=== PATIENT | male | born 1940 | race Caucasian/White ===

== ENCOUNTER 2017-09-17 09:43 | Inpatient (IN) ==
[2017-09-17] MEDS ORDERED: 0.9 % Sodium Chloride 1,000 ML IVC ONE (09:53)
[2017-09-17] MEDS ORDERED: Isovue-370 500 ML INFUS..BTL IV ONE (09:55)
[2017-09-17] MEDS ORDERED: Ondansetron 4 MG/2 ML VIAL IVP ONE (09:56)
--- NOTE | 2017-09-17 10:02 | Emergency Department Note ---
Disposition Clinical Impression: Weakness, Abdominal aneurysm, Prostate cancer, Sinus bradycardia Syncope Qualifiers: Syncope type: unspecified Qualified Code(s): R55 - Syncope and collapse Thoracic aortic aneurysm Qualifiers: Presence of rupture: without rupture Qualified Code(s): I71.2 - Thoracic aortic aneurysm, without rupture Disposition: Admitted As Inpatient Condition: Fair Time of Disposition: 12:02 Syncope HPI - General Chief Complaint: ED Syncope Stated Complaint: Syncopal Episode Time Seen by Provider: 09/17/17 09:46 Source: patient, EMS Mode of arrival: ambulatory Limitations: no limitations Nursing Notes Reviewed: Yes Vital Signs Reviewed: Yes - History of Present Illness HPI Narrative: 77-year-old male with a history of metastatic prostate cancer undergoing chemotherapy approximately 5 months ago since for evaluation of a syncopal episode. Patient recalls the episode that occurred just prior to arrival. States that he was in the kitchen and he felt lightheaded and passed out momentarily and tented to catch himself by landing on the ground on his knees. Patient denies hitting his head. States that he lost consciousness for only a matter of seconds. This was unwitnessed. Patient denied any prodromal chest pain or shortness of breath. Patient simply states that he felt lightheaded. Patient states symptom resolved. Denies any fevers or cough. 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 Patient denies any difficulty urinating. Patient does note that he has had some loose stools over the weekend and had subsequent loose stools today. Denies any abdominal pain. Denies any nausea. No vomiting. Denies being on any blood thinners. - Related Data Home Medications Medication Instructions Recorded Confirmed Aspirin Enteric Coated [Aspirin EC] 81 mg PO DAILY 01/06/15 09/17/17 Multivitamin/Iron/Folic Acid 1 each PO DAILY 01/06/15 09/17/17 [Centrum Complete Multivit Tab] Potassium Chloride 20 meq PO DAILY 01/06/15 09/17/17 Simvastatin [Zocor] 40 mg PO DAILY 01/06/15 09/17/17 Denosumab [Xgeva] 120 mg SQ QMONTH 10/05/15 09/17/17 LORazepam [Ativan] 1 mg PO DAILY PRN 09/17/17 09/17/17 Lupron Depot 1 each SQ Q3M 09/17/17 09/17/17 Omeprazole [PriLOSEC] 20 mg PO DAILY PRN 09/17/17 09/17/17 Valsartan/Hydrochlorothiazide 1 tab PO DAILY 09/17/17 09/17/17 [Diovan Hct 80-12.5 mg Tablet] Previous Rx's Medication Instructions Recorded Loperamide [Imodium] 2 cap PO AD PRN #30 capsule 03/21/17 predniSONE [Prednisone] 2.5 mg PO DAILY #30 tablet 04/28/17 Tolterodine Tartrate [Detrol] 2 mg PO BID #60 tablet 09/10/17 Allergies Allergy/AdvReac Type Severity Reaction Status Date / Time No Known Allergies Allergy Verified 09/17/17 10:16 All systems ED: reviewed and negative except as stated. Constitutional: Denies: fever Cardiovascular: Denies: chest pain Respiratory: Denies: cough, dyspnea Gastrointestinal: Reports: nausea, diarrhea. Denies: abdominal pain Past Medical History - Past Medical History Source: patient Medical history: Reports: cancer, hypertension Surgical history: Reports: herniorrhaphy Psychiatric history: Reports: no psych history - Social History Smoking Status: Current every day smoker Smokeless Tobacco Status: No Alcohol use: Reports: none Drug use: Reports: none Physical Exam - General Limitations: no limitations General appearance: alert, in no apparent distress - Head Head exam: atraumatic, normocephalic, normal inspection - Eye Eye exam: Present: normal appearance, PERRL, EOMI - ENT ENT exam: normal exam, normal oropharynx, mucous membranes moist - Neck Neck exam: Present: normal inspection - Chest Chest inspection: Present: normal inspection, symmetric chest wall rise, other ( Redness over his right upper chest wall port. Patient states that that has been present for years.) - Respiratory Respiratory exam: Present: normal lung sounds bilaterally - Cardiovascular Cardiovascular exam: Present: regular rate, normal rhythm. Absent: systolic murmur - Abdominal Exam Abdominal exam: Present: soft, Non-Tender. Absent: guarding, rebound - Extremities Exam Extremities exam: Present: normal inspection. Absent: pedal edema - Expanded Lower Extremity Exam Knee exam: Present: normal inspection, full ROM. Absent: tenderness Lower leg exam: Present: normal inspection, full ROM. Absent: tenderness Ankle exam: Present: normal inspection Neurovascular/Tendon exam: Present: normal capillary refill. Absent: pulse deficit, motor deficit, sensory deficit - Back Exam Back exam: Present: normal inspection - Neurological Exam Neurological exam: Present: alert, oriented X3, CN II-XII intact - Expanded Neurological Exam Patient oriented to: Present: person, place, time Speech: Present: fluid speech Cranial nerves: EOM function (II, III, IV, ): Normal, facial sensation (V): Normal, facial palsy (VII): Normal, spinal accessory function (XI): Normal, tongue deviation (XII): Normal Cerebellar function: finger to nose: Normal Motor strength - LUE: 5/5 Motor strength - RUE: 5/5 Motor strength - LLE: 5/5 Motor strength - RLE: 5/5 Coma Scale Eye Opening: Spontaneous Coma Scale Motor Response: Obeys Commands Coma Scale Verbal Response: Oriented Coma Scale Total: 15 - Skin Skin exam: Present: warm, dry, intact, normal color Course Course Narrative: Patient seen and examined. Patient will require extensive workup given his syncope and comorbidities with his prostate cancer. Basic screening cardiopulmonary evaluation with EKG, troponin x-ray. Patient also will get imaging with CT of the head chest abdomen pelvis. Disposition admission. - Reevaluation(s) Reevaluation #1: is concerned about weakness that the patient has been experiencing. Time: 11:10 Reevaluation #2: Patient's resting comfortably. Patient denies any needs at this time. Patient remains to be sinus bradycardia. Patient's blood pressures preserved. Patient will be admitted to the hospital service. Time: 12:10 Vital Signs Temperature 98.3 F 09/17/17 09:47 Pulse Rate 59 09/17/17 09:47 Respiratory Rate 18 09/17/17 09:47 Blood Pressure 117/77 09/17/17 09:47 O2 Sat by Pulse Oximetry 97 09/17/17 09:47 Temperature 98.3 F 09/17/17 09:47 Pulse Rate 47 09/17/17 12:54 Respiratory Rate 18 09/17/17 12:54 Blood Pressure 106/71 09/17/17 12:54 O2 Sat by Pulse Oximetry 96 09/17/17 12:54 Oxygen Delivery Oxygen Delivery Room Air Syncope - MDM Narrative Medical decision making narrative: Patient with a history of malignancy and prostate cancer with metastatic disease presents for evaluation of a syncopal episode. Patient had unwitnessed syncopal episode. Patient felt lightheaded. No prodromal symptoms. Patient's ED course included basic labs as well as chest x-ray EKG and CT of the head chest abdomen pelvis. Patient had imaging of the abdomen and pelvis due to his history of the aneurysm. Aneurysm appears to be stable. Patient is not any type of anticoagulation. Patient does have sinus bradycardia. Given the patient's history: Conditions the patient be admitted to the hospital service for further evaluation and monitoring. Patient does have redness over his right sided chest wall states it has been there chronically for years. Patient' s is concerned that the patient has been generally more weak. Patient would also benefit from formal physical therapy consult discharge planning. - Lab Data Lab results reviewed: Yes I reviewed the patient's lab results. Result diagrams: 09/17/17 10:00 09/17/17 10:00 Lab Results 09/17/17 09/17/17 09/17/17 Range/Units 09:51 10:00 10:00 WBC 6.5 (4.3-11.1) K/mcL RBC 4.06 L (4.19-5.50) M/mcL Hgb 12.7 L (12.9-16.9) g/dL Hct 37.0 L (37.5-50.1) % MCV 91.1 (83.0-100.0) fL MCH 31.3 (28.0-33.3) pg MCHC 34.3 (31.6-35.5) g/dL RDW 14.3 (11.5-14.5) % Plt Count 169 (140-400) K/mcL MPV 9.9 (9.4-12.4) fL Immature Gran % 0.3 (0-4) % Seg Neutrophils % 71.1 % Lymphocytes % 13.8 % Monocytes % 13.9 % Eosinophils % 0.6 % Basophils % 0.3 % Neutrophils # 4.6 (1.6-8.9) K/mcL Lymphocytes # 0.9 (0.6-4.6) K/mcL Monocytes # 0.9 (0.0-1.3) K/mcL Eosinophils # 0.0 (0.0-0.6) K/mcL Basophils # 0.0 (0.0-0.2) K/mcL PT 12.4 H (9.4-12.1) Seconds INR 1.1 Sodium (136-145) mEq/L Potassium (3.5-5.1) mEq/L Chloride (98-107) mEq/L Carbon Dioxide (23-29) mEq/L BUN (8-23) mg/dL Creatinine (0.70-1.30) mg/dL Est GFR ( Amer) (> 60) Est GFR (Non-Af Amer) (> 60) BUN/Creatinine Ratio (6-26) Glucose (70-105) mg/dL POC Glucose 121 H (70-99) mg/dL Calculated Osmolality (280-300) Lactic Acid (0.5-2.2) mmol/L Calcium (8.6-10.3) mg/dL Magnesium (1.6-2.6) mg/dL Total Bilirubin (0.3-1.0) mg/dL Direct Bilirubin (0.0-0.2) mg/dL Indirect Bilirubin (0.0-1.2) mg/dL AST (13-39) Units/L ALT (7-52) Units/L Alkaline Phosphatase (34-104) Units/L Troponin I (< 0.04) ng/mL B-Natriuretic Peptide (Less than 100) pg/mL Serum Total Protein (6.4-8.9) g/dL Albumin (3.5-5.7) g/dL Globulin (2.4-3.5) g/dL Albumin/Globulin Ratio (1.1-2.2) TSH (0.340-5.600) mcIU/mL 09/17/17 09/17/17 09/17/17 Range/Units 10:00 10:00 10:00 WBC (4.3-11.1) K/mcL RBC (4.19-5.50) M/mcL Hgb (12.9-16.9) g/dL Hct (37.5-50.1) % MCV (83.0-100.0) fL MCH (28.0-33.3) pg MCHC (31.6-35.5) g/dL RDW (11.5-14.5) % Plt Count (140-400) K/mcL MPV (9.4-12.4) fL Immature Gran % (0-4) % Seg Neutrophils % % Lymphocytes % % Monocytes % % Eosinophils % % Basophils % % Neutrophils # (1.6-8.9) K/mcL Lymphocytes # (0.6-4.6) K/mcL Monocytes # (0.0-1.3) K/mcL Eosinophils # (0.0-0.6) K/mcL Basophils # (0.0-0.2) K/mcL PT (9.4-12.1) Seconds INR Sodium 136 (136-145) mEq/L Potassium 3.5 (3.5-5.1) mEq/L Chloride 101 (98-107) mEq/L Carbon Dioxide 29 (23-29) mEq/L BUN 16 (8-23) mg/dL Creatinine 0.80 (0.70-1.30) mg/dL Est GFR ( Amer) > 60 (> 60) Est GFR (Non-Af Amer) > 60 (> 60) BUN/Creatinine Ratio 20 (6-26) Glucose 110 H (70-105) mg/dL POC Glucose (70-99) mg/dL Calculated Osmolality 284 (280-300) Lactic Acid 0.9 (0.5-2.2) mmol/L Calcium 8.5 L (8.6-10.3) mg/dL Magnesium 1.9 (1.6-2.6) mg/dL Total Bilirubin 0.6 (0.3-1.0) mg/dL Direct Bilirubin 0.1 (0.0-0.2) mg/dL Indirect Bilirubin 0.5 (0.0-1.2) mg/dL AST 16 (13-39) Units/L ALT 10 (7-52) Units/L Alkaline Phosphatase 57 (34-104) Units/L Troponin I < 0.03 (< 0.04) ng/mL B-Natriuretic Peptide 95 (Less than 100) pg/mL Serum Total Protein 5.7 L (6.4-8.9) g/dL Albumin 3.6 (3.5-5.7) g/dL Globulin 2.1 L (2.4-3.5) g/dL Albumin/Globulin Ratio 1.7 (1.1-2.2) TSH 0.462 (0.340-5.600) mcIU/mL - Radiology Data Radiology results reviewed: Yes I reviewed the patient's radiology results. Chest X-Ray 09/17/17 09:53 IMPRESSION: No evidence for acute cardiopulmonary process. D/ / 09/17/2017 10:29:54 Rehan Queen MD / geoff Interpreting Provider: Rehan Queen MD Head CT 09/17/17 09:54 IMPRESSION: 1. No acute intracranial abnormality. 2. Chronic small vessel ischemic disease. D/ / Bradford Nina MD / Bradford Nina MD Interpreting Provider: Bradford Nina MD Abdomen/Pelvis CTA 09/17/17 09:55 IMPRESSION: 1. Mild aneurysmal dilatation of the infrarenal aorta measuring 3.3 x 3 cm. 2. 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 3. Mild internal iliac artery aneurysm measuring up to 1.5 cm. 4. Cholelithiasis. 5. Left adrenal hyperplasia with low-attenuation nodule likely representing an adenoma. This could be further evaluated with MRI. 6. Diverticulosis without obvious inflammation. 7. Increased sclerosis involving the T11 vertebral body. This is worrisome for osseous metastasis from his known prostate cancer. RECOMMENDATIONS: Managing Abdominal Aortic Aneurysms 3.0-3.4 cm: Every 3 years. 3.5-3.9 cm: Every 1 year. 4.0-4.4 cm: Every 1 year. Recommend vascular consultation. 4.5-5.4 cm: Every 6 months. Recommend vascular consultation. Greater than or equal to 5.5 cm: Referral to vascular surgeon. *For abdominal aortas with maximum diameter of 2.6-2.9 cm meeting criteria for AAA (>50% of proximal normal segment). Reference: J Vasc Surg. 2008;50(4 Suppl):S2-49 D/ / Bradford Nina MD / Bradford Nina MD Interpreting Provider: Bradford Nina MD Chest CTA 09/17/17 09:55 IMPRESSION: 1. No evidence for acute pulmonary embolism. 2. No evidence for pneumonia. 3. Aneurysmal dilatation of ascending thoracic aorta 5.3 cm and ectatic descending thoracic aorta unchanged. D/ / Danny Lopez MD / Danny Lopez MD Interpreting Provider: Danny Lopez MD - EKG Data EKG attestation: Yes I reviewed and interpreted this EKG. EKG shows normal: sinus rhythm Rate: bradycardia Rhythm: NSR [place]/QRS: left axis deviation, RBBB, LAHB/LAFB T wave inversions noted in: v1 Ectopy: PAC Interpretation: no acute changes, unchanged when compared to prior tracing (date ), nonspecific ST-T wave changes S.B.AMigdaliaR. - S.B.A.RMigdalia Situation: Demographics Background: Presenting Complaint Assessment: Vital Signs, Course and respsone to treatment Recommendation: Barrier(s) to disposition, Recommendation based on pending studies, treatments, or consults S.B.A.RMigdalia Report Given to: Dr. Fina NewmanARonaldo Repor Time: 12:02
[2017-09-17 10:09] LABS: Basophils % 0.3 %; Eosinophils % 0.6 %; Hemoglobin 12.7 g/dL (12.9-16.9); Immature Granulocytes % 0.3 % (0-4); Lymphocytes # 0.9 K/mcL (0.6-4.6); Lymphocytes % 13.8 %; Mean Corpuscular HGB Conc 34.3 g/dL (31.6-35.5); Mean Corpuscular Hemoglobin 31.3 pg (28.0-33.3); Mean Corpuscular Volume 91.1 fL (83.0-100.0); Mean Platelet Volume 9.9 fL (9.4-12.4); Monocytes # 0.9 K/mcL (0.0-1.3); Monocytes % 13.9 %; Neutrophils # 4.6 K/mcL (1.6-8.9); Platelet Count 169 K/mcL (140-400); Red Blood Count 4.06 M/mcL (4.19-5.50); Red Cell Distribution Width 14.3 % (11.5-14.5); Segmented Neutrophils % 71.1 %
[2017-09-17 10:14] LABS: INR 1.1; Prothrombin Time 12.4 Seconds (9.4-12.1)
[2017-09-17 10:28] LABS: Troponin I < 0.03 ng/mL (< 0.04)
[2017-09-17 10:37] LABS: Alanine Aminotransferase 10 Units/L (7-52); Albumin 3.6 g/dL (3.5-5.7); Albumin/Globulin Ratio 1.7 (1.1-2.2); Alkaline Phosphatase 57 Units/L (34-104); Aspartate Amino Transferase 16 Units/L (13-39); BUN/Creatinine Ratio 20 (6-26); Bilirubin,Direct 0.1 mg/dL (0.0-0.2); Bilirubin,Indirect 0.5 mg/dL (0.0-1.2); Bilirubin,Total 0.6 mg/dL (0.3-1.0); Blood Urea Nitrogen 16 mg/dL (8-23); Calcium 8.5 mg/dL (8.6-10.3); Carbon Dioxide 29 mEq/L (23-29); Chloride 101 mEq/L (98-107); Globulin 2.1 g/dL (2.4-3.5); Glucose 110 mg/dL (70-105); Osmolality,Calculated 284 (280-300); Potassium 3.5 mEq/L (3.5-5.1); Sodium 136 mEq/L (136-145); Total Protein 5.7 g/dL (6.4-8.9); eGFR For African Americans > 60 (> 60); eGFR For Non-African Americans > 60 (> 60)
[2017-09-17 10:50] LABS: Magnesium 1.9 mg/dL (1.6-2.6)
[2017-09-17 11:27] LABS: Thyroid Stimulating Hormone 0.462 mcIU/mL (0.340-5.600)
--- NOTE | 2017-09-17 13:18 | Emergency Department Note ---
Disposition Clinical Impression: Weakness, Abdominal aneurysm, Prostate cancer, Sinus bradycardia Syncope Qualifiers: Syncope type: unspecified Qualified Code(s): R55 - Syncope and collapse Thoracic aortic aneurysm Qualifiers: Presence of rupture: without rupture Qualified Code(s): I71.2 - Thoracic aortic aneurysm, without rupture Disposition: Admitted As Inpatient Condition: Fair General Adult HPI - General Chief complaint: ED Syncope Stated complaint: Syncopal Episode Time Seen by Provider: 09/17/17 09:46 Source: patient, EMS Mode of arrival: ambulatory Limitations: no limitations - History of Present Illness Pain Scale: 0 - Related Data Home Medications Medication Instructions Recorded Confirmed Aspirin Enteric Coated [Aspirin EC] 81 mg PO DAILY 01/06/15 09/17/17 Multivitamin/Iron/Folic Acid 1 each PO DAILY 01/06/15 09/17/17 [Centrum Complete Multivit Tab] Potassium Chloride 20 meq PO DAILY 01/06/15 09/17/17 Simvastatin [Zocor] 40 mg PO DAILY 01/06/15 09/17/17 Denosumab [Xgeva] 120 mg SQ QMONTH 10/05/15 09/17/17 LORazepam [Ativan] 1 mg PO DAILY PRN 09/17/17 09/17/17 Lupron Depot 1 each SQ Q3M 09/17/17 09/17/17 Omeprazole [PriLOSEC] 20 mg PO DAILY PRN 09/17/17 09/17/17 Valsartan/Hydrochlorothiazide 1 tab PO DAILY 09/17/17 09/17/17 [Diovan Hct 80-12.5 mg Tablet] Previous Rx's Medication Instructions Recorded Loperamide [Imodium] 2 cap PO AD PRN #30 capsule 03/21/17 predniSONE [Prednisone] 2.5 mg PO DAILY #30 tablet 04/28/17 Tolterodine Tartrate [Detrol] 2 mg PO BID #60 tablet 09/10/17 Allergies Allergy/AdvReac Type Severity Reaction Status Date / Time No Known Allergies Allergy Verified 09/17/17 10:16 Constitutional: Denies: fever Cardiovascular: Denies: chest pain Respiratory: Denies: cough, dyspnea Gastrointestinal: Reports: nausea, diarrhea. Denies: abdominal pain Past Medical History - Past Medical History Medical history: Reports: cancer, hypertension Surgical history: Reports: herniorrhaphy Psychiatric history: Reports: no psych history - Social History Smoking Status: Current every day smoker Smokeless Tobacco Status: No Alcohol use: Reports: none Drug use: Reports: none Physical Exam - General Limitations: no limitations General appearance: alert, in no apparent distress Course Vital Signs Temperature 98.3 F 09/17/17 09:47 Pulse Rate 59 09/17/17 09:47 Respiratory Rate 18 09/17/17 09:47 Blood Pressure 117/77 09/17/17 09:47 O2 Sat by Pulse Oximetry 97 09/17/17 09:47 Temperature 98.4 F 09/17/17 15:30 Pulse Rate 51 09/17/17 15:30 Respiratory Rate 16 09/17/17 15:30 Blood Pressure 96/54 09/17/17 15:30 O2 Sat by Pulse Oximetry 96 09/17/17 15:30 Oxygen Delivery Oxygen Delivery Room Air Medical Decision Making - Lab Data Result diagrams: 09/17/17 10:00 09/17/17 10:00 Lab Results 09/17/17 09/17/17 09/17/17 Range/Units 09:51 10:00 10:00 WBC 6.5 (4.3-11.1) K/mcL RBC 4.06 L (4.19-5.50) M/mcL Hgb 12.7 L (12.9-16.9) g/dL Hct 37.0 L (37.5-50.1) % MCV 91.1 (83.0-100.0) fL MCH 31.3 (28.0-33.3) pg MCHC 34.3 (31.6-35.5) g/dL RDW 14.3 (11.5-14.5) % Plt Count 169 (140-400) K/mcL MPV 9.9 (9.4-12.4) fL Immature Gran % 0.3 (0-4) % Seg Neutrophils % 71.1 % Lymphocytes % 13.8 % Monocytes % 13.9 % Eosinophils % 0.6 % Basophils % 0.3 % Neutrophils # 4.6 (1.6-8.9) K/mcL Lymphocytes # 0.9 (0.6-4.6) K/mcL Monocytes # 0.9 (0.0-1.3) K/mcL Eosinophils # 0.0 (0.0-0.6) K/mcL Basophils # 0.0 (0.0-0.2) K/mcL PT 12.4 H (9.4-12.1) Seconds INR 1.1 Sodium (136-145) mEq/L Potassium (3.5-5.1) mEq/L Chloride (98-107) mEq/L Carbon Dioxide (23-29) mEq/L BUN (8-23) mg/dL Creatinine (0.70-1.30) mg/dL Est GFR ( Amer) (> 60) Est GFR (Non-Af Amer) (> 60) BUN/Creatinine Ratio (6-26) Glucose (70-105) mg/dL POC Glucose 121 H (70-99) mg/dL Calculated Osmolality (280-300) Lactic Acid (0.5-2.2) mmol/L Calcium (8.6-10.3) mg/dL Magnesium (1.6-2.6) mg/dL Total Bilirubin (0.3-1.0) mg/dL Direct Bilirubin (0.0-0.2) mg/dL Indirect Bilirubin (0.0-1.2) mg/dL AST (13-39) Units/L ALT (7-52) Units/L Alkaline Phosphatase (34-104) Units/L Troponin I (< 0.04) ng/mL B-Natriuretic Peptide (Less than 100) pg/mL Serum Total Protein (6.4-8.9) g/dL Albumin (3.5-5.7) g/dL Globulin (2.4-3.5) g/dL Albumin/Globulin Ratio (1.1-2.2) TSH (0.340-5.600) mcIU/mL 09/17/17 09/17/17 09/17/17 Range/Units 10:00 10:00 10:00 WBC (4.3-11.1) K/mcL RBC (4.19-5.50) M/mcL Hgb (12.9-16.9) g/dL Hct (37.5-50.1) % MCV (83.0-100.0) fL MCH (28.0-33.3) pg MCHC (31.6-35.5) g/dL RDW (11.5-14.5) % Plt Count (140-400) K/mcL MPV (9.4-12.4) fL Immature Gran % (0-4) % Seg Neutrophils % % Lymphocytes % % Monocytes % % Eosinophils % % Basophils % % Neutrophils # (1.6-8.9) K/mcL Lymphocytes # (0.6-4.6) K/mcL Monocytes # (0.0-1.3) K/mcL Eosinophils # (0.0-0.6) K/mcL Basophils # (0.0-0.2) K/mcL PT (9.4-12.1) Seconds INR Sodium 136 (136-145) mEq/L Potassium 3.5 (3.5-5.1) mEq/L Chloride 101 (98-107) mEq/L Carbon Dioxide 29 (23-29) mEq/L BUN 16 (8-23) mg/dL Creatinine 0.80 (0.70-1.30) mg/dL Est GFR ( Amer) > 60 (> 60) Est GFR (Non-Af Amer) > 60 (> 60) BUN/Creatinine Ratio 20 (6-26) Glucose 110 H (70-105) mg/dL POC Glucose (70-99) mg/dL Calculated Osmolality 284 (280-300) Lactic Acid 0.9 (0.5-2.2) mmol/L Calcium 8.5 L (8.6-10.3) mg/dL Magnesium 1.9 (1.6-2.6) mg/dL Total Bilirubin 0.6 (0.3-1.0) mg/dL Direct Bilirubin 0.1 (0.0-0.2) mg/dL Indirect Bilirubin 0.5 (0.0-1.2) mg/dL AST 16 (13-39) Units/L ALT 10 (7-52) Units/L Alkaline Phosphatase 57 (34-104) Units/L Troponin I < 0.03 (< 0.04) ng/mL B-Natriuretic Peptide 95 (Less than 100) pg/mL Serum Total Protein 5.7 L (6.4-8.9) g/dL Albumin 3.6 (3.5-5.7) g/dL Globulin 2.1 L (2.4-3.5) g/dL Albumin/Globulin Ratio 1.7 (1.1-2.2) TSH 0.462 (0.340-5.600) mcIU/mL Attestation Statement - Attestation Attestation: I examined this patient and my medical decision-making was reviewed with the Resident Physician, Dr. Castano. I agree with the documented findings, disposition and treatment plan as described except to the extent set forth below. Patient is a 77-year-old white male with history of metastatic prostate cancer who presents to the emergency department after a syncopal episode. Patient was just recently seen on Friday by his oncologist where they discussed possibly initiating radiation therapy. They had withheld his chemotherapy treatment temporarily because of diarrheal illness he been having over the weekend causing some generalized weakness. Patient states his diarrhea has continued to bother him is having loose watery bowel movements and the is concerned about his overall profound generalized weakness that he has been having that has gradually worsening over the past week. Patient states this morning he was standing in the kitchen and became lightheaded and subsequently fell towards his right side he reports onto his knees and thinks he may have lost consciousness for a matter of seconds. Patient remembers everything and the course of the fall denies hitting his head and denies any neck or back pain. Patient has no complaints related to the fall. Patient denies any prodromal symptoms prior to the fall with the exception of lightheadedness. Patient is asymptomatic here resting comfortably mildly bradycardic but blood pressure stable. I agree with patient's physical exam findings as documented. Patient's EKG showed a sinus bradycardia without acute ischemia. Patient on the monitor and pulse ox at this time. IV fluids were initiated labs were drawn and sent and based on patient's history of both the thoracic and abdominal aortic aneurysm he was sent for CTA that chest and abdomen and pelvis. As well as CT of the brain. Patient's labs and imaging is unremarkable overall with no findings that made contributed to his incident today. Patient has had a persistent bradycardia that may be contributing to this weakness. Patient will be admitted for further evaluation and management case was discussed with hospitalist Dr. Sweet.
--- NOTE | 2017-09-17 14:10 | Internal Med History&Physical ---
<Jemima Rodriguez - Last Filed: 09/17/17 13:56> Date of Encounter: 09/17/17 Time of Encounter: 13:57 Internal Medicine - H&P: HPI Admitted From: Home Plans for Post Hospital Care: Home History of present illness: Mr. Garnica is a 77 year old male who had a syncopal episode while at home standing in his kitchen. The patient indicated that he tried to cath his balance then fell into te refrigerator. The patient indicated that his face fell into the refrigerator. He did indicate that he had bouts of diarrhea, even up to today, but denies abdominal pain. He denied any fevers. He did report occasionally coughing up white phlegm. He denied any history of diarrhea or stool infections. He was diagnosed with prostate cancer and has a mediport on the left chest. The mediport was placed around 15 months ago, per the and she indicated that the port site and tubing line, sub-dermal, has been reddened ever since. The patient has apparently had cultures of the skin, but the indicate he has never had any cultures from the line. His last chemo treatment was in April 2017. The patient heart-rate in the mid 40's per tele, indicated it is typically around 45-50. His bp is also marginally hypotensive and the patient indicate this was his norm. A UA, stool cultures, c-diff, and blood culture will be obtained to assess status of any infection. CT was negative for PE. The patient has 3 aneurysms, with the largest in the aorta measuring 3.3x3cm per abd CT scan. Ct of the head was negative for hemorrhage. Past Med Surg Social Fam HX - Past Medical History Medical history: cancer, hypertension Psychiatric history: no psych history - Past Surgical History Surgical History: herniorrhaphy - Social History Smoking Status: Current every day smoker Smokeless Tobacco Status: No Alcohol use: none Drug use: none Internal Medicine - H&P: Meds Aspirin Enteric Coated [Aspirin EC] 81 mg PO DAILY 01/06/15 [History] Multivitamin/Iron/Folic Acid [Centrum Complete Multivit Tab] 1 each PO DAILY [History] Potassium Chloride 20 meq PO DAILY 01/06/15 [History] Simvastatin [Zocor] 40 mg PO DAILY 01/06/15 [History] Denosumab [Xgeva] 120 mg SQ QMONTH 10/05/15 [History] Loperamide [Imodium] 2 cap PO AD PRN #30 capsule 03/21/17 [Rx] predniSONE [Prednisone] 2.5 mg PO DAILY #30 tablet 04/28/17 [Rx] Tolterodine Tartrate [Detrol] 2 mg PO BID #60 tablet 09/10/17 [Rx] LORazepam [Ativan] 1 mg PO DAILY PRN 09/17/17 [History] Lupron Depot 1 each SQ Q3M 09/17/17 [History] Omeprazole [PriLOSEC] 20 mg PO DAILY PRN 09/17/17 [History] Valsartan/Hydrochlorothiazide [Diovan Hct 80-12.5 mg Tablet] 1 tab PO DAILY 07/06 [History] 3 Allergy/AdvReac Type Severity Reaction Status Date / Time No Known Allergies Allergy Verified 09/17/17 10:16 All Systems PM: A 10-system review of systems was performed and is negative for pertinent findings except as documented above in the HPI. - Constitutional Constitutional: falls, weakness, no fever(s) - EENT Nose, mouth and throat: nasal congestion - Cardiovascular Cardiovascular ROS IM: lightheadedness, syncope, no chest pain - Respiratory Respiratory: cough, excessive phlegm production - Gastrointestinal Gastrointestinal: diarrhea, no abdominal pain - Genitourinary Genitourinary ROS male: other (Prostate Cancer) - Musculoskeletal Musculoskeletal ROS IM: muscle weakness - Neurological Neurological ROS: weakness - Allergic/Immunologic Allergic/Immunologic: wheezing ( indicated that when he has alot of phlegm he has audible wheezing) - Constitutional Vitals: Temp Pulse Resp BP Pulse Ox 98.3 F 47 18 110/65 96 09/17/17 09:47 09/17/17 12:54 09/17/17 13:30 09/17/17 13:30 09/17/17 12:54 General appearance: Present: A&O X 3, pleasant, answers questions appropriately - Head Head exam: Present: atraumatic, normocephalic (Small erythematous area to left cheek, with associated mild bruising under eye from fall) - Eye Eye exam: Present: PERRL, conjuntiva pink, sclera anicteric Pupils: Present: PERRL - Neck Neck exam general surgery: Present: supple, trachea midline. Absent: lymphadenopathy - Respiratory Respiratory exam: Present: CTAB. Absent: accessory muscle use, rales, rhonchi, wheezes - Cardiovascular Cardiovascular exam: Present: RRR, +S1, +S2. Absent: diastolic murmur, gallop, rubs, systolic murmur - GI/Abdominal GI/Abdominal exam: Present: normal bowel sounds, soft, no peritoneal signs. Absent: distended, guarding, tenderness - Extremities Exam Extremities exam: Present: warm, radial pulses palpable and symmetrical. Absent : calf tenderness, cyanotic, pedal edema - Neurological Exam Neurological exam: Present: alert, CN II-XII intact, oriented X3, no focal deficits. Absent: pronater drift, facial droop, speech deficit - Skin Skin exam: Present: dry, erythema, intact Internal Med - H&P Results - Labs CBC & Chem 7: 09/17/17 10:00 09/17/17 10:00 - Assessment and plan (1) Syncope Current Visit: Yes Status: Acute Assessment and plan: Will monitor ortho static bps daily, give IVF, ct of head was negative for hemorrhage. Pt alert and oriented x 3 denies symptoms at this time. (2) Abdominal aneurysm Current Visit: Yes Status: Acute Assessment and plan: New result to patient today. Will monitor outpatient. (3) Sinus bradycardia Current Visit: Yes Status: Acute Assessment and plan: Patient indicated that he normally runs in the mid to high 40's at home. Will hold antihypertensive meds for now, as this may be the possible cause. Will continue IVF's. (4) Diarrhea Current Visit: No Status: Acute Assessment and plan: The patient reported intermittent diarrheal stools for the past few days could be caused for a infectious process or viral infection. Will get stool cultures and c-diff specimen. The patient will be in contact isolation until cleared. IV fluids. Qualifiers: Diarrhea type: unspecified type Qualified Code(s): R19.7 - Diarrhea, unspecified - Time Spent With Patient Total time spent is greater than 50% in coordination of care (as documented) at patient's floor/unit and/or counseling patient: Greater than 35 minutes <Leonidas Carlisle - Last Filed: 09/17/17 14:59> Date of Encounter: 09/17/17 Internal Medicine - H&P: HPI History of present illness: Mr. Garnica is a 77 year old male All Systems PM: A 10-system review of systems was performed and is negative for pertinent findings except as documented above in the HPI. - Constitutional Vitals: Temp Pulse Resp BP Pulse Ox 98.3 F 47 18 110/65 96 09/17/17 09:47 09/17/17 12:54 09/17/17 13:30 09/17/17 13:30 09/17/17 12:54 Internal Med - H&P Results - Labs CBC & Chem 7: 09/17/17 10:00 09/17/17 10:00 - Attending Attestation I have personally performed a face to face evaluation on this patient. I have reviewed and agree with the care plan. History and Exam by me shows: Mr. 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 He felt unwell last Friday when he had an episode where he was noted to be as white as a sheet with weakness along the whole body that is nonfocal. On that day he had diarrhea all day up to 6 times with watery brown stool output. He subsequently had diarrhea on Friday as well. He experience a break from diarrhea until today where he had 3 episodes and had taken Imodium with some improvement. Today he had persistent dizziness associated with a syncopal episode at a short lived. He landed on the ground on his knees and suspected that he lost consciousness for a matter of seconds. On review he has a right chest port with an erythematous track which she reports as chronic since placement 13 months ago. He reports that the port has been investigated with no evidence of infection. He denies any fevers or chills at current EKG personally reviewed with rate of 58, right bundle branch block that is unchanged since 2015 ROS 14 point review of systems reviewed as best as possible given presentation. Pertinent positive or negative as per HPI or otherwise reviewed as negative General - AAO x 3 Psych - Appropriate affect/speech. No agitation Eyes - ZAIRA. Eye lids intact. No scleral icterus Neuro - No gross peripheral or central neuro deficits on inspection Heart - Sinus. RRR. S1 and S2 present. No added HS/murmurs appreciated. No elevated JVD appreciated. Lung - Adequate air entry b/l, No crackles/wheezes appreciated GI - Soft, non-tender. No hepatosplenomegaly/ascites. BS+ - No CVA/suprapubic tenderness or palpable bladder distension Skin - right chest port with erythema under the track CT/CT angio chest IMPRESSION: 1. No evidence for acute pulmonary embolism. 2. No evidence for pneumonia. 3. Aneurysmal dilatation of ascending thoracic aorta 5.3 cm and ectatic descending thoracic aorta unchanged. CT/CT angio abdomen pelvis IMPRESSION: 1. Mild aneurysmal dilatation of the infrarenal aorta measuring 3.3 x 3 cm. 2. 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 3. Mild internal iliac artery aneurysm measuring up to 1.5 cm. 4. Cholelithiasis. 5. Left adrenal hyperplasia with low-attenuation nodule likely representing an adenoma. This could be further evaluated with MRI. 6. Diverticulosis without obvious inflammation. 7. Increased sclerosis involving the T11 vertebral body. This is worrisome for osseous metastasis from his known prostate cancer. - Time Spent With Patient Total time spent is greater than 50% in coordination of care (as documented) at patient's floor/unit and/or counseling patient:
[2017-09-17] MEDS: 0.9 % Sodium Chloride 1,000 ML IVC SCH (14:31)
[2017-09-17 16:00] LABS: Bilirubin,Urine Negative (Negative); Blood,Urine Trace (Negative); Clarity,Urine Clear (Clear); Color,Urine Yellow (Yellow); Glucose,Urine (UA) Normal (Normal); Ketones,Urine Negative (Negative); Leukocyte Esterase,Urine Negative (Negative); Nitrite,Urine Negative (Negative); Protein,Urine Negative (Neg-Trace); Specific Gravity,Urine 1.027 (1.010-1.025); Urobilinogen,Urine Normal (Normal)
[2017-09-17 16:02] LABS: Bacteria,Urine None Seen per hpf (None-Few); Hyaline Casts,Urine None Seen per lpf (None-Few); RBC,Urine 0-3 per hpf (0-3); Squamous Epithelial Cell,Urine Few per lpf (None-Few); WBC,Urine 0-3 per hpf (0-3)
--- NOTE | 2017-09-17 22:29 | Electrocardiograph Report ---
[place] [facility] Test Date: 2017-09-17 Pat Name: Isael Garnica Department: 104 Room: [facility] Gender: M [employer]: JOSÉ ANTONIO : 1940 Requested By: Luis Castano Order Number: [id number] Reading MD: Carroll Villarreal Measurements Intervals [place] Rate: 58 P: 78 AL: 144 QRS: -62 QRSD: 142 T: 31 QT: 473 QTc: 470 Interpretive Statements SINUS BRADYCARDIA WITH OCCASIONAL SUPRAVENTRICULAR PREMATURE COMPLEXES RIGHT BUNDLE BRANCH BLOCK LEFT ANTERIOR FASCICULAR BLOCK Electronically Signed On 09-17-2017 22:27:07 EDT by Carroll Villarreal
[2017-09-18] MEDS: *HR* LORazepam 1 MG TABLET PO PRN ×3 (02:21→18:05)
[2017-09-18] MEDS: 0.9 % Sodium Chloride 1,000 ML IVC SCH ×2 (02:21→18:06)
[2017-09-18] MEDS: *HR* Enoxaparin 40 MG/0.4 ML SYRINGE SQ SCH (05:20)
[2017-09-18 05:38] LABS: Basophils % 0.4 %; Eosinophils # 0.1 K/mcL (0.0-0.6); Eosinophils % 1.8 %; Hematocrit 31.8 % (37.5-50.1); Immature Granulocytes % 0.4 % (0-4); Lymphocytes # 1.3 K/mcL (0.6-4.6); Mean Corpuscular HGB Conc 34.3 g/dL (31.6-35.5); Mean Corpuscular Hemoglobin 31.1 pg (28.0-33.3); Mean Corpuscular Volume 90.9 fL (83.0-100.0); Monocytes % 15.1 %; Neutrophils # 3.3 K/mcL (1.6-8.9); Platelet Count 162 K/mcL (140-400); Red Cell Distribution Width 14.3 % (11.5-14.5); Segmented Neutrophils % 59.3 %
[2017-09-18 05:49] LABS: Hemoglobin 10.9 g/dL (12.9-16.9); Monocytes # 0.9 K/mcL (0.0-1.3)
[2017-09-18 06:01] LABS: BUN/Creatinine Ratio 16 (6-26); Blood Urea Nitrogen 12 mg/dL (8-23); Calcium 7.4 mg/dL (8.6-10.3); Carbon Dioxide 27 mEq/L (23-29); Chloride 105 mEq/L (98-107); Glucose 90 mg/dL (70-105); Osmolality,Calculated 283 (280-300); Potassium 3.5 mEq/L (3.5-5.1); Sodium 137 mEq/L (136-145); eGFR For African Americans > 60 (> 60); eGFR For Non-African Americans > 60 (> 60)
[2017-09-18 06:08] LABS: Platelet Estimate Normal (Normal); Reactive Lymphocytes Present (Not Present)
[2017-09-18] MEDS: predniSONE 5 MG TABLET PO SCH (08:49)
[2017-09-18] MEDS: Aspirin Enteric Coated 81 MG Tablet PO SCH (08:49)
[2017-09-18] MEDS: Multivit/Ca/Min/Fe/FA 1 TAB TABLET PO SCH (08:50)
--- NOTE | 2017-09-18 14:58 | Internal Med Progress Note ---
Date of Encounter: 09/18/17 Time of Encounter: 14:53 - Assessment and plan (1) Dehydration Current Visit: Yes Status: Acute Assessment and plan: Syncopal episodes likely secondary to dehydration related to acute viral gastroenteritis Continue IV fluids Send GI panel Fall precautions (2) Thoracic aortic aneurysm Current Visit: Yes Status: Acute Assessment and plan: Has not progressed CT scan of the chest showed:1. No evidence for acute pulmonary embolism. 2. No evidence for pneumonia. 3. Aneurysmal dilatation of ascending thoracic aorta 5.3 cm and ectatic descending thoracic aorta unchanged. First evidenced on the CT scan performed on January 2015 measuring 5.7 cm Quit smoking and follow-up as an outpatient Qualifiers: Presence of rupture: without rupture Qualified Code(s): I71.2 - Thoracic aortic aneurysm, without rupture (3) Viral gastroenteritis Current Visit: Yes Status: Acute (4) Abdominal aneurysm Current Visit: Yes Status: Acute Assessment and plan: CT scan of the abdomen showed:1. No evidence of intrathoracic or abdominopelvic metastatic disease 2. Stable sclerotic lesion of T12. No findings of new skeletal metastatic disease 3. Stable 5.3 cm aneurysm of the ascending thoracic aorta 4. Stable 3.1 cm aneurysm of the abdominal aorta with bilateral iliac ectasia 5. Left adrenal adenoma 6. Stable complicated right renal cyst 7. Cholelithiasis 8. Colonic diverticulosis 9. Status post prostatectomy Infrarenal aortic dilatation first noticed on November 2015, 3.2 cm as well as bilateral common iliac arteries 2.4 cm on the right and 2 cm on the left. (5) Sinus bradycardia Current Visit: Yes Status: Acute Assessment and plan: Asymptomatic bradycardia Continue telemetry, consider cardiology consult if becomes symptomatic (6) Syncope Current Visit: Yes Status: Acute Qualifiers: Syncope type: unspecified Qualified Code(s): R55 - Syncope and collapse (7) Prostate cancer Current Visit: Yes Status: Chronic Assessment and plan: Follow-up with oncology as outpatient Continue Lupron On chronic prednisone 2.5 mg daily (8) Diarrhea Current Visit: No Status: Acute Qualifiers: Diarrhea type: infectious Qualified Code(s): A09 - Infectious gastroenteritis and colitis, unspecified - Time Spent With Patient Total time spent is greater than 50% in coordination of care (as documented) at patient's floor/unit and/or counseling patient: - Subjective Interval history: Denies any chest pain or shortness of breath, no dizziness, no abdominal pain or dysuria. Had watery diarrhea in the past few days and felt dizzy prior to falling - Constitutional Vitals: Temp Pulse Resp BP Pulse Ox 99.8 F H 49 18 99/59 95 09/18/17 11:34 09/18/17 11:34 09/18/17 11:34 09/18/17 11:34 09/18/17 11:34 General appearance: Present: A&O X 3, pleasant, answers questions appropriately - Head Head exam: Present: atraumatic, normocephalic - Eye Eye exam: Present: PERRL, conjuntiva pink, sclera anicteric Pupils: Present: PERRL - Neck Neck exam general surgery: Present: supple, trachea midline. Absent: lymphadenopathy - Respiratory Respiratory exam: Present: CTAB. Absent: accessory muscle use, rales, rhonchi, wheezes - Cardiovascular Cardiovascular exam: Present: RRR, +S1, +S2. Absent: diastolic murmur, gallop, rubs, systolic murmur - GI/Abdominal GI/Abdominal exam: Present: normal bowel sounds, soft, no peritoneal signs. Absent: distended, tenderness - Extremities Exam Extremities exam: Present: warm, radial pulses palpable and symmetrical. Absent : calf tenderness, cyanotic, pedal edema - Neurological Exam Neurological exam: Present: CN II-XII intact, oriented X3, no focal deficits. Absent: pronater drift, facial droop, speech deficit - Skin Skin exam: Present: dry, intact Internal Medicine: Result - Labs CBC & Chem 7: 09/18/17 05:25 09/18/17 05:25 Labs: Short CBC 09/18/17 Range/Units 05:25 WBC 5.6 (4.3-11.1) K/mcL Hgb 10.9 L D (12.9-16.9) g/dL Hct 31.8 L (37.5-50.1) % Plt Count 162 (140-400) K/mcL Neutrophils # 3.3 (1.6-8.9) K/mcL BMP 09/18/17 05:25 Sodium 137 Potassium 3.5 Chloride 105 Carbon Dioxide 27 BUN 12 Creatinine 0.73 Glucose 90 Calcium 7.4 L Urine 09/17/17 Range/Units 15:45 Urine Color Yellow (Yellow) Urine Clarity Clear (Clear) Urine pH 6.0 (5.0-8.0) pH Units Ur Specific [place] 1.027 H (1.010-1.025) Urine Protein Negative (Neg-Trace) mg/dL Urine Glucose (UA) Normal (Normal) mg/dL - ABG Interpretation ABG results: PT/INR, D-dimer PT 12.4 Seconds (9.4-12.1) H 09/17/17 10:00 Consult Discharge Plan - Plan Referrals: Maikel Godwin Jr, MD [Primary Care Provider] -
[2017-09-19] MEDS: *HR* LORazepam 1 MG TABLET PO PRN ×2 (00:13→09:13)
[2017-09-19] MEDS: 0.9 % Sodium Chloride 1,000 ML IVC SCH (06:15)
[2017-09-19] MEDS: *HR* Enoxaparin 40 MG/0.4 ML SYRINGE SQ SCH (06:16)
[2017-09-19 07:01] LABS: Basophils % 0.4 %; Eosinophils # 0.2 K/mcL (0.0-0.6); Hemoglobin 10.7 g/dL (12.9-16.9); Immature Granulocytes % 0.2 % (0-4); Lymphocytes # 1.3 K/mcL (0.6-4.6); Lymphocytes % 22.6 %; Mean Corpuscular HGB Conc 33.4 g/dL (31.6-35.5); Mean Corpuscular Hemoglobin 30.7 pg (28.0-33.3); Mean Corpuscular Volume 91.7 fL (83.0-100.0); Mean Platelet Volume 10.4 fL (9.4-12.4); Monocytes # 0.9 K/mcL (0.0-1.3); Monocytes % 15.3 %; Neutrophils # 3.3 K/mcL (1.6-8.9); Platelet Count 173 K/mcL (140-400); Red Blood Count 3.49 M/mcL (4.19-5.50); Red Cell Distribution Width 14.3 % (11.5-14.5); Segmented Neutrophils % 58.5 %
[2017-09-19 07:50] LABS: BUN/Creatinine Ratio 20 (6-26); Blood Urea Nitrogen 12 mg/dL (8-23); Calcium 7.3 mg/dL (8.6-10.3); Carbon Dioxide 27 mEq/L (23-29); Chloride 109 mEq/L (98-107); Glucose 82 mg/dL (70-105); Osmolality,Calculated 289 (280-300); Potassium 3.5 mEq/L (3.5-5.1); Sodium 140 mEq/L (136-145); eGFR For African Americans > 60 (> 60); eGFR For Non-African Americans > 60 (> 60)
[2017-09-19 08:18] VITALS: BP 106/54
--- NOTE | 2017-09-19 09:09 | Discharge Summary ---
- NOTES TO OUTPATIENT PROVIDER Notes to Outpatient Provider: Follow-up with primary care physician within the next 7 days. May follow-up with cardiology within the next 2-3 weeks. Hold valsartan and hydrochlorothiazide if blood pressure is below 120 or if dehydrated. Quit smoking. Needs imaging once yearly to assess aortic aneurysms which are stable at the moment Orders not resulted at time of discharge: Pending orders 09/18/17 14:53 Fecal Hemoccult [Occult Blood,Stool] [BF] Routine Date of Encounter: 09/19/17 Time of Encounter: 09:07 - Discharge Diagnosis (1) Dehydration Priority: Primary Status: Acute Assessment and Plan: Syncopal episodes likely secondary to dehydration related to acute viral gastroenteritis (2) Thoracic aortic aneurysm Priority: Secondary Status: Acute Assessment and Plan: Has not progressed CT scan of the chest showed:1. No evidence for acute pulmonary embolism. 2. No evidence for pneumonia. 3. Aneurysmal dilatation of ascending thoracic aorta 5.3 cm and ectatic descending thoracic aorta unchanged. First evidenced on the CT scan performed on January 2015 measuring 5.7 cm Quit smoking and follow-up as an outpatient Qualifiers: Presence of rupture: without rupture Qualified Code(s): I71.2 - Thoracic aortic aneurysm, without rupture (3) Viral gastroenteritis Priority: Primary Status: Acute (4) Abdominal aneurysm Priority: Secondary Status: Acute Assessment and Plan: CT scan of the abdomen showed:1. No evidence of intrathoracic or abdominopelvic metastatic disease 2. Stable sclerotic lesion of T12. No findings of new skeletal metastatic disease 3. Stable 5.3 cm aneurysm of the ascending thoracic aorta 4. Stable 3.1 cm aneurysm of the abdominal aorta with bilateral iliac ectasia 5. Left adrenal adenoma 6. Stable complicated right renal cyst 7. Cholelithiasis 8. Colonic diverticulosis 9. Status post prostatectomy Infrarenal aortic dilatation first noticed on November 2015, 3.2 cm as well as bilateral common iliac arteries 2.4 cm on the right and 2 cm on the left. (5) Sinus bradycardia Priority: Secondary Status: Acute Assessment and Plan: Asymptomatic bradycardia Was offered the option to consult cardiology but says he has had it for 10 years May follow up with cardiology as outpatient (6) Syncope Priority: Primary Status: Acute Qualifiers: Syncope type: unspecified Qualified Code(s): R55 - Syncope and collapse (7) Prostate cancer Priority: Secondary Status: Chronic (8) Diarrhea Priority: Primary Status: Acute Qualifiers: Diarrhea type: infectious Qualified Code(s): A09 - Infectious gastroenteritis and colitis, unspecified (9) Iron deficiency anemia Priority: Secondary Status: Acute Qualifiers: Iron deficiency anemia type: unspecified iron deficiency Qualified Code(s) : D50.9 - Iron deficiency anemia, unspecified Hospital course: Mr. Garnica is a 77 year old male with a past medical history of metastatic prostate cancer, hypertension, chronic sinus bradycardia, who had a syncopal episode while at home standing in his kitchen. The patient indicated that he tried to catch his balance then fell into the refrigerator. The patient indicated that his face fell into the refrigerator. He did indicated that he had bouts of diarrhea, but denied abdominal pain. He denied any fevers. He did report occasionally coughing up white phlegm. He was diagnosed with prostate cancer and has a mediport on the right chest. The mediport was placed around 15 months ago, per the and she indicated that the port site and tubing line, sub-dermal, has been reddened ever since. The patient has apparently had cultures of the skin, but the indicate he has never had any cultures from the line. His last chemo treatment was in April 2017. The patient heart-rate was in the mid 40's per tele, indicated it is typically around 45-50. His bp is also marginally hypotensive and the patient indicate this was his norm. CT was negative for PE. The patient has aortic aneurysms as described above. Ct of the head was negative for hemorrhage. CBC showed reactive lymphocytes (23%) that have resolved. Anemia possibly related to dilution after rehydration, possibly iron def anemia. Diarrhea improved. Is ready to be discharged. Time spent discussing smoking cessation with patient: 3 to 10 minutes - Time Spent with Patient Total time spent providing and/or coordinating discharge services: Greater than 30 minutes (40 min) - Discharge Medications Home Medications: Aspirin Enteric Coated [Aspirin EC] 81 mg PO DAILY 01/06/15 [History] Multivitamin/Iron/Folic Acid [Centrum Complete Multivit Tab] 1 each PO DAILY [History] Potassium Chloride 20 meq PO DAILY 01/06/15 [History] Simvastatin [Zocor] 40 mg PO DAILY 01/06/15 [History] Denosumab [Xgeva] 120 mg SQ QMONTH 10/05/15 [History] Loperamide [Imodium] 2 cap PO AD PRN #30 capsule 03/21/17 [Rx] predniSONE [Prednisone] 2.5 mg PO DAILY #30 tablet 04/28/17 [Rx] Tolterodine Tartrate [Detrol] 2 mg PO BID #60 tablet 09/10/17 [Rx] LORazepam [Ativan] 1 mg PO DAILY PRN 09/17/17 [History] Lupron Depot 1 each SQ Q3M 09/17/17 [History] Omeprazole [PriLOSEC] 20 mg PO DAILY PRN 09/17/17 [History] Valsartan/Hydrochlorothiazide [Diovan Hct 80-12.5 mg Tablet] 1 tab PO DAILY 07/06 [History] Allergies/Adverse Reactions: 3 Allergy/AdvReac Type Severity Reaction Status Date / Time No Known Allergies Allergy Verified 09/17/17 10:16 Date of admission: 09/18/17 14:52 Primary care physician: Maikel Godwin Jr, MD - Constitutional Vitals: Temp Pulse Resp BP Pulse Ox 97.7 F 49 20 106/54 97 09/19/17 07:35 09/19/17 07:35 09/19/17 07:35 09/19/17 07:35 09/19/17 07:35 General appearance: Present: A&O X 3, pleasant, answers questions appropriately - Head Head exam: Present: atraumatic, normocephalic - Eye Eye exam: Present: PERRL, conjuntiva pink, sclera anicteric Pupils: Present: PERRL - Neck Neck exam general surgery: Present: supple, trachea midline. Absent: lymphadenopathy - Respiratory Respiratory exam: Present: CTAB. Absent: accessory muscle use, rales, rhonchi, wheezes Additional comments: Right upper chest MediPort surrounded erythema, not warm or tender - Cardiovascular Cardiovascular exam: Present: RRR, +S1, +S2. Absent: diastolic murmur, gallop, rubs, systolic murmur - GI/Abdominal GI/Abdominal exam: Present: normal bowel sounds, soft, no peritoneal signs. Absent: distended, tenderness - Extremities Exam Extremities exam: Present: warm, radial pulses palpable and symmetrical. Absent : calf tenderness, cyanotic, pedal edema - Neurological Exam Neurological exam: Present: CN II-XII intact, oriented X3, no focal deficits. Absent: pronater drift, facial droop, speech deficit - Skin Skin exam: Present: dry, intact - Patient Status Disposition: Home, Self-Care Condition: Good Overall status at discharge: patient is back to baseline - Discharge Instructions Follow Up With: Maikel Godwin Jr, MD [Primary Care Provider] - Additional Instructions: Follow-up with primary care physician within the next 7 days. May follow-up with cardiology within the next 2-3 weeks. Hold valsartan and hydrochlorothiazide if blood pressure is below 120 or if dehydrated. Quit smoking - Diet and Activity Activity: increase activity as tolerated Diet: low fat, low cholesterol
[2017-09-19] MEDS: predniSONE 5 MG TABLET PO SCH (09:13)
[2017-09-19] MEDS: Multivit/Ca/Min/Fe/FA 1 TAB TABLET PO SCH (09:13)
[2017-09-19] MEDS: Aspirin Enteric Coated 81 MG Tablet PO SCH (09:13)
[2017-09-19 11:09] LABS: Adenovirus F 40/41 PCR Not detected (Not detect); Astrovirus PCR Not detected (Not detect); C.difficile Toxin A/B by PCR Not detected (Not detect); Campylobacter by PCR Not detected (Not detect); Cryptosporidium by PCR Not detected (Not detect); Cyclospora cayetanensis PCR Not detected (Not detect); E. coli O157 by PCR Not detected (Not detect); Entamoeba histolytica PCR Not detected (Not detect); Enteroaggregative E.coli(EAEC) Not detected (Not detect); Enteropathogenic E.coli(EPEC) Not detected (Not detect); Enterotoxigenic E.coli (ETEC) Not detected (Not detect); Giardia lamblia PCR Not detected (Not detect); Norovirus GI/GII PCR Not detected (Not detect); Plesiomonas shigelloides PCR Not detected (Not detect); Rotavirus A PCR Not detected (Not detect); Sapovirus PCR Not detected (Not detect); Shig/EnteroinvasiveE coli EIEC Not detected (Not detect); Shigalike tox-prod E coli STEC Not detected (Not detect); Vibrio PCR Not detected (Not detect); Vibrio cholerae PCR Not detected (Not detect); Yersinia enterocolitica PCR Not detected (Not detect)
[2017-09-19 11:13] LABS: Salmonella PCR ***DETECTED*** (Not detect)
== END 2017-09-19 11:11 | disposition home or self-care (01) | DRG 372 ==
LOC: EMEROO 09:43 → 2ANU 09:43
PROVIDERS: ADMIT Internal Medicine; ATTEND Internal Medicine